=== PATIENT | male | born 1945 | race Caucasian/White ===

== ENCOUNTER 2016-08-28 10:38 | Observation (INO) | payer MEDICARE, OTHER ==
[~2016-08-28] VITALS: Ht 182.9 cm; Wt 79.2 kg
[2016-08-28] VITALS (10 sets, daily range): BP systolic 95–137; BP diastolic 64–94; PULSE 65–119; RESP 16–20; O2SAT 97–100
[~2016-08-28 10:38] MED LIST: ASPI-973 PO; ATRV10T PO; CARV6.252 PO; CYAN10008 PO; DOCU-41 PO; GLUC1500 PO; LISI-571 PO; POTA-62 PO; SPIR25TA PO; WARF2.5T82 PO; [UNRECOGNIZED DRUG - CODE] PO
--- NOTE | 2016-08-28 10:49 | ED.REPORT ---
HPI-Chest Pain 40 and Over Date of Service Aug 28, 2016 ED Provider: Spencer Osborne DO 71 year old male anticoagulated on Coumadin with a history of [place], atrial flutter , CHF, CABG, cardiac stent placement, cardiac catheterization, and mitral valve replacement presents to the ER via EMS accompanied by his after his internal defibrillator fired just prior to arrival while at an appointment to have labs drawn. He reports palpitations preceding the event, and that he was paced at 196bpm, then over 200bpm before his device went off. Lately he has been ill with nausea, vomiting, and diarrhea onset three days ago. Since being placed on Digoxin six days ago he has lost 7 pounds, reports being dehydrated, and dizziness with ambulating for long periods of time. He is followed by Dr. Torrez, Cardiology [facility], and Dr. Angel, Cardiology . Upon further questioning he reports that he typically has 3 alcoholic drinks daily, but ceased alcohol consumption five days ago. He denies any withdrawal symptoms. Nursing Notes Stated Complaint: RAPID HEART RATE Nursing Notes Reviewed: Yes Allergies: Coded Allergies: No Known Allergies (Unverified , 02/24/15) Scheduled Aspirin (Aspirin) 81 Mg Tablet 162 MG PO DAILY Atorvastatin (Lipitor) 10 Mg Tab 10 MG PO HS Carvedilol (Carvedilol) 6.25 Mg Tablet 6.25 MG PO am Carvedilol (Carvedilol) 6.25 Mg Tablet 3.125 MG PO q pm Dofetilide (Tikosyn) 500 Mcg Capsule 500 MCG PO BID Glucosamine HCl (Glucosamine HCl) 1,500 Mg Tablet 3,000 MG PO DAILY Lisinopril (Lisinopril) 5 Mg Tablet 2.5 MG PO BID Potassium Chloride ER (Potassium Chloride ER) 20 Meq Tablet.er 20 MEQ PO DAILY TAKE WITH FOOD Spironolactone (Aldactone) 25 Mg Tablet 25 MG PO DAILY Warfarin Sodium (Warfarin Sodium) 2.5 Mg Tablet 5 MG PO DAILY Scheduled PRN Docusate Sodium (Colace) 100 Mg Capsule 100 MG PO DAILY PRN PRN For Constipation Miscellaneous Medications Cyanocobalamin (Vitamin B-12) (Vitamin B-12) 1,000 Mcg Tablet 1,000 MCG PO General Time Seen by MD: 10:49 Chief Complaint Other (Defibrillator Fired) Hx Obtained From: Patient, Spouse Arrived By: Ambulance Sudden in Onset?: Yes Onset Occurred: Just prior to arrival Associated with: Reports: Dizziness, Nausea, Palpitations, Vomiting Pertinent Negative: Pt denies other symptoms Context Related History: Reports: Congestive heart failure, Myocardial infarction Recent Healthcare: Recent doctor visit Similar Sx Previous: Yes Past Medical History Past Medical History Notes: Dr. Torrez, Cardiology [facility], and Dr. Angel, Cardiology . 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 Physical Exam Initial Vital Signs Vital Signs (First) Date Time Temp Pulse Resp B/P Pulse Ox O2 Delivery O2 Flow Rate FiO2 08/28/16 10:52 35.4 119 16 137/94 99 08/28/16 11:40 Room Air Initial VS: Reviewed Head / Eyes: Atraumatic, Normocephalic Neck: Supple, Non-tender, Full range of motion Extremities: Vascular intact, Neuro intact, No swelling, No tenderness Skin: Warm, Dry, No cyanosis Neurologic: Alert, Oriented, Nonfocal Psychiatric: Mood/affect normal, Behavior normal, Normal thought content General/Constitutional: Awake, Alert, No acute distress, Well developed Appearance / Presentation: Positive: Frail Respiratory / Chest: Breath sounds NL, Breath sounds = bilat, No respiratory distress, No rales, No rhonchi, No wheezing, No stridor, No chest tenderness Cardiovascular: No murmurs, No rubs Heart Rate / Rhythm: Positive: Irreg irregular rhythm, Tachycardia Abdomen: Soft, Non-tender, No guarding, No rebound, No distention Interpretation & Diagnostics Lab Results Interpretation Result Diagram: 08/28/16 1105 08/28/16 1105 Test 08/28/16 11:05 White Blood Count 3.8th/mm3 (3.8-10.1) Red Blood Count 4.38mil/mm3 (4.40-5.80) Hemoglobin 12.9g/dL (13.8-17.2) Hematocrit 38.9% (41.0-50.0) Mean Corpuscular Volume 88.8fL (81-100) Mean Corpuscular Hemoglobin 29.5pg (27.0-35.0) Mean Corpuscular Hemoglobin Concent 33.2% (32.0-37.0) Red Cell Distribution Width 15.2% (12.3-15.4) Platelet Count 175bil/L (150-400) Neutrophils (%) (Auto) 63.3% (40-74) Lymphocytes (%) (Auto) 14.6% (14-46) Monocytes (%) (Auto) 19.8% (4-12) Eosinophils (%) (Auto) 1.8% (0-5) Basophils (%) (Auto) 0.5% (0-3) Prothrombin Time 17.4sec (8.1-12.5) Prothromb Time International Ratio 1.61ratio Sodium Level 130mEq/L (134-144) Potassium Level 4.3mEq/L (3.5-5.2) Chloride Level 94mEq/L (97-108) Carbon Dioxide Level 19mmol/L (18-29) Blood Urea Nitrogen 20mg/dL (8-27) Creatinine 0.71mg/dL (0.76-1.27) Estimat Glomerular Filtration Rate 116mL/min (>59) Glucose Level 111mg/dL (60-99) Calcium Level 8.9mg/dL (8.5-10.1) Magnesium Level 2.0mg/dL (1.6-2.6) Total Bilirubin 0.5mg/dL (0.0-1.2) Aspartate Amino Transf (AST/SGOT) 30U/L (0-50) Alanine Aminotransferase (ALT/SGPT) 19U/L (0-44) Alkaline Phosphatase 67U/L (25-160) Troponin T < 0.010ug/L (0.0-0.011) Total Protein 7.6g/dL (6.4-8.4) Albumin 4.0g/dL (3.4-5.0) Digoxin Level < 0.3nG/mL (0.9-2.0) ECG Interpretation ECG Interpretation: Tachycardia LBBB No definitive P waves, concern for flutter rhythm History of LBBB 10/2015 Time: 11:31 Interpreted by: ED physician X-Ray Chest Interpretation Chest Xray Interpretation: IMPRESSION: 1. Mild enlargement of the heart may be exaggerated by shallow inspiration and portable technique. However, cardiomegaly cannot be excluded. 2. No overt heart failure is evident. 3. Possible left basilar atelectasis. Dictated by: Douglas Jean Baptiste M.D. on 08/28/2016 at 10:46 Approved by: Douglas Jean aBptiste M.D. on 08/28/2016 at 10:49 View: Portable, 1 view Interpretation / Wet Read by: Interpret - Radiologist Re-Eval/Medical Decision Med Decision/Clinical Course Overall it sounds like this patient is dehydrated, likely a self-limiting episode of vomiting and diarrhea associated with increasing diuretics this likely precipitated rapid atrial flutter which subsequently was shocked with his AICD today. After discussion with his loan collector at [facility] and cardiology at [facility] and this helps patient will be admitted for gentle hydration and reassessment of fluid status as well as hopeful rhythm change out of a flutter. Source of Hx: Old records Time of Eval: 11:34 Re-Evaluation/Progress Note: Patient is asymptomatic. HR is now paced in the 70's. Time of Eval: 12:54 Re-Evaluation/Progress Note: Discussed lab and imaging results and need for admission. Consultation #1: Call Returned at: 11:07 Note: Discussed with prosthetic lab technician at Dr. Torrez's office. Interrogation of pacemaker revealed atrial flutter at the time of defibrillator firing. Consultation #2: Consulted With: Cardiology () Call Returned at: 12:34 Note: Discussed patient case with patient's Electric Refrigerator Preparer, Dr. nAgel, at Medicine. Recommends admission for atrial flutter. Contact Dr. Torrez, Cardiology. Consultation #3: Referral / Consult Name: Allyn Verduzco MD Consulted With: Cardiology Call Returned at: 12:41 Note: Recommends admission and hydration. Can formally consult if needed. Consultation #4: Referral / Consult Name: Rajesh Sotelo MD Consulted With: Hospitalist Call Returned at: 13:37 Director Of Scout Work: Agrees with eval, Agrees with plan, Accepts admit Counseled Regarding: Diagnosis, Lab results, Need for admission Discharge & Departure Primary Impression: Atrial flutter Additional Impressions: AICD discharge Dehydration Disposition: ADMITTED TO HOSPITAL Discharge Condition All VS Reviewed: Yes Condition: Stable Referrals: Thony Adams MD (PCP) Yaw Torrez MD Attestation Portions of this note were transcribed by Clemente Steinberg. I, Dr. Osborne, personally performed the history, physical exam and medical decision-making; I reviewed and confirmed the accuracy of the information in the transcribed note. Signed by: Yudith Smith, 08/28/2016 and 13:38 copies to: Yaw Torrez MD; Thony Adams MD, Timothy S DO Aug 28, 2016 10:49 CLEMENTE STEINBERG Aug 28, 2016 10:58
[2016-08-28] MEDS ORDERED: 0.9% Sodium Chloride 500 ML IV ONE (11:00)
[2016-08-28 11:31] LABS: BASOPHILS % (AUTO) 0.5 % (0-3); EOSINOPHILS % (AUTO) 1.8 % (0-5); MONOCYTES % (AUTO) 19.8 % (4-12); Mean Corpuscular Hemoglobin 29.5 pg (27.0-35.0); Mean Corpuscular Volume 88.8 fL (81-100); NEUTROPHILS % (AUTO) 63.3 % (40-74); Platelet Count 175 bil/L (150-400)
[2016-08-28 11:39] LABS: INR 1.61 ratio
--- NOTE | 2016-08-28 11:51 | DRSVH ---
PROCEDURE: X-RAY CHEST ONE VIEW, PORTABLE ([id number]) INDICATIONS: AICD Fired, CHF TECHNIQUE: One view of the chest was acquired. COMPARISON: [facility], CR, XR CHEST 1VW (PORTABLE), 02/24/2015, 12:36. [facility], CR, XR CHEST 2VW, 02/17/2015, 8:12. [facility], CR, CHEST 2VW, 08/28/2014, 10:00. FINDINGS: Surgical changes and devices: Cardiac pacer device is again evident overlying the left chest, which i s grossly unchanged. Post operative changes related to median sternotomy and prior heart valve surge ry are again noted. Lungs and pleura: There are low lung volumes. Partial obscuration of the left diaphragm is present. However, there is no focal consolidation, effusion, or pneumothorax. No overt heart failure is evid ent. Mediastinum: Mediastinal contours appear normal. Heart size is mildly enlarged some which may be ex aggerated by portable technique and shallow inspiration. There is aortic atherosclerosis. Bones and chest wall: No suspicious bony lesions. Overlying soft tissues appear unremarkable. IMPRESSION: 1. Mild enlargement of the heart may be exaggerated by shallow inspiration and portable technique. However, cardiomegaly cannot be excluded. 2. No overt heart failure is evident. 3. Possible left basilar atelectasis. Dictated by: Douglas Jean Baptiste M.D. on 08/28/2016 at 10:46 Approved by: Douglas Jean Baptiste M.D. on 08/28/2016 at 10:49
[2016-08-28 12:08] LABS: TROPONIN T < 0.010 ug/L (0.0-0.011)
[2016-08-28] MEDS: 0.9% Sodium Chloride 1,000 ML IV SCH (13:27)
[2016-08-28] MEDS ORDERED: Ondansetron 2 mg/mL 2 mL Inj IVPUSH PRN (13:40)
[2016-08-28] MEDS ORDERED: Polyethylene Glycol (PEG) 17 Gm Powder PO PRN (13:40)
[2016-08-28] MEDS ORDERED: ALBU8.5H2 INH (14:10)
[2016-08-28] MEDS ORDERED: SILD20TA14 PO (14:10)
[2016-08-28] MEDS ORDERED: SILD50TA PO (14:10)
[2016-08-28] MEDS ORDERED: FURO40TA4 PO (14:10)
[2016-08-28] MEDS ORDERED: WARF2.5T82 PO (14:10)
[2016-08-28] MEDS ORDERED: DIGO125T73 PO (14:10)
--- NOTE | 2016-08-28 17:20 | PCM.HPMED ---
Subjective Date of Service Aug 28, 2016 Primary Provider: Admitting Physician: Rajesh Sotelo MD Primary Care Physician: Thony Adams MD Attending Physician: Rajesh Sotelo MD Admit Status: From the Emergency Department, 23-Hour Observation, Admit to [facility] Team, [facility] Telemetry Chief Complaint: Diarrhea with dehydration and AICD defibrillation History of Present Illness: Patient was ill from Sunday through Sunday with an illness . He developed progressive nausea and emesis with anorexia. Then he had fairly severe diarrhea Sunday and Sunday. He became somewhat dehydrated and weak. Today, while having his blood drawn, his AICD shocked him. This was his 1st shock. Interrogation revealed a rapid AF with unsuccessful overdrive acing. No ventricular tachycardia. He was started on digoxin last Sunday from the heart failure clinic at [facility]. His diuretics were increased Sun as well and he took them through his illness. No fevers, chills, rectal bleeding, URI symptoms , chest pain, racing heart, leg edema, or orthopnea. No new NAVA. Review of Systems: All reviewed and negative except as noted on history and physical. Allergies Coded Allergies: No Known Allergies (Unverified , 08/28/16) Home Medications Coded Allergies: No Known Allergies (Unverified , 02/24/15) Scheduled Aspirin (Aspirin) 81 Mg Tablet 162 MG PO DAILY Atorvastatin (Lipitor) 10 Mg Tab 10 MG PO HS Carvedilol (Carvedilol) 6.25 Mg Tablet 6.25 MG PO am Carvedilol (Carvedilol) 6.25 Mg Tablet 3.125 MG PO q pm Dofetilide (Tikosyn) 500 Mcg Capsule 500 MCG PO BID Glucosamine HCl (Glucosamine HCl) 1,500 Mg Tablet 3,000 MG PO DAILY Lisinopril (Lisinopril) 5 Mg Tablet 2.5 MG PO BID Potassium Chloride ER (Potassium Chloride ER) 20 Meq Tablet.er 20 MEQ PO DAILY TAKE WITH FOOD Spironolactone (Aldactone) 25 Mg Tablet 25 MG PO DAILY Warfarin Sodium (Warfarin Sodium) 2.5 Mg Tablet 5 MG PO DAILY Scheduled PRN Docusate Sodium (Colace) 100 Mg Capsule 100 MG PO DAILY PRN PRN For Constipation Miscellaneous Medications Cyanocobalamin (Vitamin B-12) (Vitamin B-12) 1,000 Mcg Tablet 1,000 MCG PO PMH 1. CAD with bypass twice, as well as PCI. 2. Myocardial infacrction 3. Chronic systolic heart failure (ischemic cardiomyopathy) 4. Mitral valve replacement (Bovine) 5. Atrial fibrillation with 3 past ablations. Surgical History CABG CABG and MVR Family History Negative for CAD Social History Occupation: retired Hx Alcohol Use: Yes (09/21/16 last drink. Stopped for heart transplant.) Hx Substance Use: No Smoking Status: Former Smoker Living Arrangement: with Family Exam Vital Signs Vital Sign - Last Date Time Temp Pulse Resp B/P Pulse Ox O2 Delivery O2 Flow Rate FiO2 08/28/16 15:57 65 08/28/16 15:45 36.5 20 104/72 100 Room Air Exam Alert and oriented x 3, no distres, fluent speech, normal affect Normal skull Normal ears and nose Anicteric sclera and conjugate gaze. Normal mouth, no facial droop Normal neck, thyroid, and no adenopathy Lungs clear, normal effort Heart irregular, and no murmur Abdomen soft, NT No leg edema Many bruises Normal joints Normal muscle strength. Lab and Diagnostics Result Diagram: 08/28/16 1105 08/28/16 1105 X-Rays, CTs and MRIs CXR without infiltrate or edema. 12-lead ECG LBBB, probable paced Assessment & Plan 1. Volume depletion from diarrhea (resolved), POA. Gentle rehydration, hold diuretics. 2. Chronic systolic heart failure, POA. Usual medications except digoxin. 3. Diarrhea, resolved. Follow clinically. 4. PAF, POA. Normal rate. Follow clinically and continue coumadin. 5. Low protime, POA. Coumadin 7.5 tonight. Full code Observation status, 1 night stay anticipated. Pain Evaluation: Adequate Pain Control Resuscitation Status: CPR: Attempt Resuscitation Time spent 40 min Rajesh Sotelo MD Aug 28, 2016 17:19
[2016-08-28 19:07] LABS: APPEARANCE,URINE CLEAR (CLEAR,HAZY); COLOR,URINE YELLOW (YELLOW); OCCULT BLOOD,URINE TRACE (NEGATIVE); UROBILINOGEN,URINE NORMAL (NORMAL)
--- NOTE | 2016-08-28 19:28 | NUR ---
Arrived, Telemetry Changes Arrived - He arrived to [facility] 2023 about 1520. He was settled into the room and normal saline IV was started at 75 mls per hour per Dr. Sotelo's orders. Telemetry was placed on him with the initial reading of V-paced 96 at 1530. Telemetry Changes - Around 1722 it appeared that his pacemaker stopped pacing. About 1730 he got up to go to the bathroom and started having A-flutter in the 170s. He was in the bathroom and had an accident while having a bowel movement. He was assisted by staff to sit down, get cleaned up, and taken back to bed. At 1745 the Podiatric Medicine Doctor called to say it appeared he was in V-tach in the 180s. Went into the room and he was found in bed and said he felt "chest pressure." The charge nurse notified Dr. Sotelo via phone who said to let him rest to see if the pressure disappears, take his vitals, and call him back within 5 minutes. The pressure disappeared, his vitals were stable, and Dr. Sotelo was notified. Dr. Sotelo came to check on the patient and upon further inspection of his cardiac rhythm came to the conclusion that it was likely atrial activity rather then ventricular. He sat and talked with the patient and his for quite some time. Per Dr. Sotelo's orders he will remain mostly bedrest tonight except for short trips to the bedside commode, continue to hydrate with the normal saline, continue telemetry monitoring, and continue home medication except for Digoxin and diuretics. He and his are in agreement with this plan. assembler 1st shift notified. Care continues.
[2016-08-28] MEDS ORDERED: Albuterol 2.5 mg/3 mL Inhalation Solution NEB PRN (20:00)
--- NOTE | 2016-08-29 01:23 | NUR ---
HS coreg pt refusing his HS coreg 6.25MG pt stating he dosen't take it at night and Dr. Sotelo told him he wasn't changing any medications, pt on bedrest but sits at side of bed to void and per tele rhythm changing into a ventricular tachycardia with a wide complex rates up to 140-180s, pt also one time with 5 beats of v-tach during this pt c/o a slight discomfort, otherwise tele 2:1 Aflutter rate 60-110s, pt deciding he wanted to take 3.125mg now of coreg, called MD and received order to give 3.125MG PO coreg now OT and cont dose in morning of 6.25MG, explained to pt and he understood. pt on strict bedrest and will cont POC
[2016-08-29] MEDS: 0.9% Sodium Chloride 1,000 ML IV SCH (02:54)
[2016-08-29 04:00] VITALS: BP 99/65; PULSE 103; RESP 17; O2SAT 97
[2016-08-29 05:05] LABS: BASOPHILS % (AUTO) 0.3 % (0-3); EOSINOPHILS % (AUTO) 3.3 % (0-5); MONOCYTES % (AUTO) 19.1 % (4-12); Mean Corpuscular Volume 87.9 fL (81-100); NEUTROPHILS % (AUTO) 60.1 % (40-74); Platelet Count 141 bil/L (150-400)
[2016-08-29 07:56] VITALS: BP 105/67; PULSE 73; RESP 18; O2SAT 98
[2016-08-29 10:54] VITALS: PULSE 96
--- NOTE | 2016-08-29 11:00 | NUR ---
Activity Order to have pt ambulate and monitor HR. Pt up in room and ambulated around nurse unit with HR in the 80s and back down to 70s at rest. Pt denied c/p, SOB or Dizziness. MD made aware. Ongoing care.
[2016-08-29 12:39] VITALS: BP 95/62; PULSE 80; RESP 16; O2SAT 98
--- NOTE | 2016-08-29 13:11 | NUR ---
Case Management: Medicare KELLOGG information and "How Medicare Covers Self-Administered Drugs Given in Hospital Outpatient Settings" handout provided with explanation. Patient signed KELLOGG form 08/29/16 at 1210. Jeannie Mcnair RN
--- NOTE | 2016-08-29 13:19 | NUR ---
Social Work Note: Initial Assessment Data& Assessment: EMR Reviewed. SW met with pt and pt at bedside to discuss discharge planning, SW role explained. Rell Colon is a 71 year old male admitted on 08/28/2016 under observation for A-Flutter and AICD Discharge. Pt has Medicare and [facility] [employer] Supplement for insurance coverage. Pt sees Thony Dhirajkamleshsoledad for primary care. Pt lives in [place] with his in a two story home where he is independent with all of his ADL's. Pt does not use any DME at baseline. Pt does not have HH or SNF hx. Pt does not have LTC insurance or VA benefits. Pt has DPOA/Advance Directive paperwork completed at home, SW requested a copy for his chart when possible. SW provided contact number on pt white board. Pt and pt deny any other needs at this time. SW to continue to follow if any needs arise. Plan: Anticipated discharge home via POV when medically ready. Pt and pt deny any other needs at this time. SW to continue to follow if any needs arise. GISELLE Simon Addendum: 08/29/16 at 1323 by AMELIE NUÑEZ Amended: Links added.
--- NOTE | 2016-08-29 14:11 | PCM.DIMED ---
Discharge Instructions Date of Service Aug 29, 2016 Dates of Hospitalization Aug 28, 2016 at 14:24 Discharge Diagnosis Discharge Diagnosis 1. Volume depletion, resolved. 2. Diarrhea, resolved. 3. Atrial fibrillation with tachycardia, improved. 4. Chronic systolic heart failure. 5. Prosthetic mitral valve replacement, remote. Diet Low fat, Low Sodium, Heart Healthy Call your provider Shortness of breath, Chest pain Patient Instructions Follow-up Provider: Yaw Torrez MD Follow-up with PCP in: 1 week Rajesh Sotelo MD Aug 29, 2016 14:11
[2016-08-29] MEDS ORDERED: CARV6.252 PO (14:12)
--- NOTE | 2016-08-29 14:22 | PCM.DC.MED ---
Discharge Summary Date of Service Aug 29, 2016 Dates of Hospitalization Date of Hospital Admission Aug 28, 2016 at 14:24 Date of Discharge: Aug 29, 2016 Providers: Admitting Physician: Rajesh Reyes MD Primary Care Physician: Thony Adams MD Attending Physician: Rajesh Reyes MD Diagnosis at Time of Discharge Diagnosis at Time of Discharge 1. Volume depletion, resolved. 2. Diarrhea, resolved. 3. Atrial fibrillation with tachycardia, improved. 4. Chronic systolic heart failure. 5. Prosthetic mitral valve replacement, remote. Consultations None Procedures XRay, CTs & MRIs CXR without infiltrate or edema. ECG 12 Lead LBBB, probable paced Invasive Procedures None Brief History Patient was ill from Sunday through Sunday with an illness . He developed progressive nausea and emesis with anorexia. Then he had fairly severe diarrhea Sunday and Sunday. He became somewhat dehydrated and weak. Today, while having his blood drawn, his AICD shocked him. This was his 1st shock. Interrogation revealed a rapid AF with unsuccessful overdrive acing. No ventricular tachycardia. He was started on digoxin last Sunday from the heart failure clinic at [facility]. His diuretics were increased Sun as well and he took them through his illness. No fevers, chills, rectal bleeding, URI symptoms , chest pain, racing heart, leg edema, or orthopnea. No new NAVA. Hospital Course 1. Volume depletion from diarrhea (resolved), POA. Gentle rehydration, hold diuretics. 2. Chronic systolic heart failure, POA. Usual medications except digoxin. 3. Diarrhea, resolved. Follow clinically. 4. PAF, POA. Normal rate. Follow clinically and continue coumadin. 5. Low protime, POA. Coumadin 7.5 tonight. Full code Observation status, 1 night stay anticipated. Hospital course: he was admitted for volume depletion and episodes of tachycardia. He had limited diarrhea prio to admit. He was given IVF and improved. Digoxi was stopped at request of [facility] cards. His coreg kept at usual dosing. On day of dc he was able to walk without sever increase in HR or symptoms. We spent a fair amount of time discussing AV node ablation for rate control verses ongoing changes of medications. Exam Vital Signs (Last) Date Time Temp Pulse Resp B/P Pulse Ox O2 Delivery O2 Flow Rate FiO2 08/29/16 12:39 36.4 80 16 95/62 98 Room Air Exam Patient seen and examined on day of discharge. Test 08/28/16 11:05 08/28/16 17:40 08/29/16 04:10 Prothrombin Time 17.4sec (8.1-12.5) Prothromb Time International Ratio 1.61ratio Magnesium Level 2.0mg/dL (1.6-2.6) Troponin T < 0.010ug/L (0.0-0.011) Digoxin Level < 0.3nG/mL (0.9-2.0) Urine Color Yellow (YELLOW) Urine Appearance Clear (CLEAR,HAZY) Urine pH 5.0 (5.0-8.0) Urine Specific [place] 1.015 (1.003-1.035) Urine Protein Negativemg/dL (NEG,TRACE) Urine Glucose (UA) Negativemg/dL (NEGATIVE) Urine Ketones Tracemg/dL (NEGATIVE) Urine Occult Blood Trace (NEGATIVE) Urine Nitrite Negative (NEGATIVE) Urine Bilirubin Negative (NEGATIVE) Urine Urobilinogen Normalmg/dL (NORMAL) Urine Leukocyte Esterase Negative (NEGATIVE) Urine RBC 0-2/hpf (0-2) Urine WBC 0-5/hpf (0-5) Urine Epithelial Cells Occasional/hpf (NONE-MOD) Urine Crystals None seen (NONE SEEN) Urine Bacteria None/hpf (NONE-FEW) Urine Hyaline Casts None/lpf (NONE) Urine Granular Casts None seen (NONE SEEN) Urine Waxy Casts None seen (NONE SEEN) Urine Red Blood Cell Casts None seen (NONE SEEN) Urine White Blood Cell Casts None seen (NONE SEEN) Urine Mucus None seen (None Seen) Urine Trichomonas None seen (NONE SEEN) Urine Yeast None (NONE SEEN) Urinalysis Comment None Urine Culture Reflexed Not indicated White Blood Count 3.0th/mm3 (3.8-10.1) Red Blood Count 3.55mil/mm3 (4.40-5.80) Hemoglobin 10.3g/dL (13.8-17.2) Hematocrit 31.2% (41.0-50.0) Mean Corpuscular Volume 87.9fL (81-100) Mean Corpuscular Hemoglobin 29.0pg (27.0-35.0) Mean Corpuscular Hemoglobin Concent 33.0% (32.0-37.0) Red Cell Distribution Width 14.9% (12.3-15.4) Platelet Count 141bil/L (150-400) Neutrophils (%) (Auto) 60.1% (40-74) Lymphocytes (%) (Auto) 17.2% (14-46) Monocytes (%) (Auto) 19.1% (4-12) Eosinophils (%) (Auto) 3.3% (0-5) Basophils (%) (Auto) 0.3% (0-3) Sodium Level 137mEq/L (134-144) Potassium Level 3.8mEq/L (3.5-5.2) Chloride Level 103mEq/L (97-108) Carbon Dioxide Level 21mmol/L (18-29) Blood Urea Nitrogen 11mg/dL (8-27) Creatinine 0.69mg/dL (0.76-1.27) Estimat Glomerular Filtration Rate 120mL/min (>59) Glucose Level 92mg/dL (60-99) Calcium Level 8.2mg/dL (8.5-10.1) Total Bilirubin 0.4mg/dL (0.0-1.2) Aspartate Amino Transf (AST/SGOT) 22U/L (0-50) Alanine Aminotransferase (ALT/SGPT) 14U/L (0-44) Alkaline Phosphatase 53U/L (25-160) Total Protein 5.4g/dL (6.4-8.4) Albumin 3.1g/dL (3.4-5.0) Discharge Medications Discharge Medications Aspirin (Aspirin) 81 Mg Tablet 162 MG PO DAILY (Reported) Atorvastatin (Lipitor) 10 Mg Tab 10 MG PO HS (Reported) Carvedilol (Carvedilol) 6.25 Mg Tablet 6.25 MG PO BID Prescribed by: RAJESH REYES MD Dofetilide (Tikosyn) 500 Mcg Capsule 500 MCG PO BID Prescribed by: MEDARDO BLAIR Furosemide (Furosemide) 40 Mg Tablet 40 MG PO DAILY (Reported) Glucosamine HCl (Glucosamine HCl) 1,500 Mg Tablet 3,000 MG PO DAILY (Reported) Lisinopril (Lisinopril) 5 Mg Tablet 2.5 MG PO BID (Reported) Potassium Chloride ER (Potassium Chloride ER) 20 Meq Tablet.er 20 MEQ PO DAILY ( Reported) TAKE WITH FOOD Spironolactone (Aldactone) 25 Mg Tablet 25 MG PO DAILY Prescribed by: MEDARDO BLAIR Warfarin Sodium (Warfarin Sodium) 2.5 Mg Tablet 5 MG PO sun,sun, sunday ( Reported) Warfarin Sodium (Warfarin Sodium) 2.5 Mg Tablet 7.5 MG PO ,,, (Reported ) As needed Albuterol HFA (Proair HFA) 8.5 Gm Hfa.aer.ad 2 PUFFS INH q4-6 hours PRN PRN For Shortness of Breath (Reported) Sildenafil Citrate (Sildenafil) 20 Mg Tablet 20 MG PO DAILY PRN PRN sexual activity (Reported) Followup Plan Disposition: Home with Discharge Diet: Low fat, Low Sodium, Heart Healthy Follow-up Provider: Yaw Torrez MD Follow-up with PCP in: 1 week Time spent 40 minutes Rajesh Reyes MD Aug 29, 2016 14:22
--- NOTE | 2016-08-29 14:56 | NUR ---
Social Work Note: Discharge Data& Assessment: Per MD pt is medically ready for discharge. Rell Colon is a 71 year old male under observation for Aflutter. Per MD pt is medically improved and ready for discharge. Pt and pt deny any other needs. Pt transporting pt home. All updated and agreeable to plan. No other discharge needs identified. Plan: Per pt is medically improved and ready for discharge. Pt and pt deny any other needs. All updated and agreeable to plan. No other discharge needs identified. GISELLE Simon
--- NOTE | 2016-08-29 14:57 | NUR ---
Discharge of patient Reviewed discharge instructions with patient and patient's . Patient verbalized understanding. Pt discharged via wheelchair with prescription and instructions. IV and Telemetry previously discontinued. Patient left hospital with to home self care.
[2016-09-11] MEDS ORDERED: SILD50TA PO (14:48)
== END 2016-08-29 14:45 | disposition home or self-care (01) ==
LOC: SED 10:38 → EDBD 10:38 → EDUNIT# 10:38 → PCC 14:24
PROVIDERS: ADMIT Hospitalist; ATTEND Hospitalist
DX: E86.0 Dehydration (principal); R19.7 Diarrhea, unspecified; I48.91 Unspecified atrial fibrillation; I50.22 Chronic systolic (congestive) heart failure; R00.0 Tachycardia, unspecified; I48.92 Unspecified atrial flutter; I25.10 Atherosclerotic heart disease of native coronary artery without angina pectoris; I25.2 Old myocardial infarction; Z95.1 Presence of aortocoronary bypass graft; Z95.5 Presence of coronary angioplasty implant and graft; Z95.2 Presence of prosthetic heart valve; Z79.01 Long term (current) use of anticoagulants; Z95.810 Presence of automatic (implantable) cardiac defibrillator; Z79.82 Long term (current) use of aspirin; Z87.891 Personal history of nicotine dependence
CPT/HCPCS: 36415; 71010; 80053; 80162; 81000; 82274; 83735; 84484; 85025; 85610; 87633; 93005; 96360; 96361; 99285; G0378; J7030; J7040

== ENCOUNTER 2016-09-12 00:16 | Day surgery (SDC) | payer MEDICARE, OTHER ==
[2016-09-12] VITALS (15 sets, daily range): BP systolic 81–90; BP diastolic 51–62; PULSE 61–82; RESP 12–20; O2SAT 97–99
[~2016-09-12] VITALS: Ht 185.4 cm; Wt 67.3 kg
[~2016-09-12 00:16] MED LIST changes: +ALBU8.5H2 INH; -CYAN10008 PO; -DOCU-41 PO; +FURO40TA4 PO; +SILD50TA PO
[2016-09-12] MEDS ORDERED: 0.9% Sodium Chloride 1,000 ML IV SCH (08:55)
[2016-09-12 11:58] LABS: BASOPHILS % (AUTO) 0.7 % (0-3); MONOCYTES % (AUTO) 11.2 % (4-12); Mean Corpuscular Volume 91.1 fL (81-100); NEUTROPHILS % (AUTO) 71.4 % (40-74); Platelet Count 152 bil/L (150-400)
[2016-09-12 12:11] LABS: INR 1.55 ratio
[2016-09-12] MEDS ORDERED: CARV3.122 PO (12:21)
[2016-09-12] MEDS ORDERED: WARF7.5T PO (12:23)
[2016-09-12] MEDS ORDERED: WARF6TAB PO (12:23)
--- NOTE | 2016-09-12 13:05 | NUR ---
Admitted today for an planned AV node ablation. Pt and family understand plan of care for the procedure and recovery. Admits in a paced rhythm rate is 110, but abruptly changes to a rate 61 still paced. BP running in the low 80's - pt states he has had a recent > of Coreg - and is tolerating the lower BP without dizziness.
[2016-09-12] MEDS ORDERED: Heparin 5,000 Units/500 mL NS Premix IV ONE ×2 (14:33)
[2016-09-12] MEDS ORDERED: Vancomycin Inj 1,250 MG in 0.9% Sodium Chloride 250 ML IV SCH (14:48)
[2016-09-12] MEDS ORDERED: Heparin 1,000 Unit/mL 10 mL Inj ONE (14:48)
[2016-09-12] MEDS ORDERED: 0.9% Sodium Chloride 1,000 ML ONE (14:49)
[2016-09-12] MEDS ORDERED: fentaNYL-PF 50 mCg/mL 2 mL Inj ONE (14:55)
[2016-09-12] MEDS ORDERED: HYDROcodone-APAP 5-325 mg Tablet PO PRN (16:15)
[2016-09-12] MEDS ORDERED: Ondansetron 2 mg/mL 2 mL Inj IVPUSH PRN (16:15)
--- NOTE | 2016-09-12 17:42 | NUR ---
Received Received from cath lab manager about 1630. VSS. Right groin stable. 100% AV paced. Taking po well. Denies pain. Groin precautions reviewed and verbalizes understanding. Continue to monitor per orders.
--- NOTE | 2016-09-12 18:33 | NUR ---
Recovery/Transfer No change in assessment 2 hours post ablation. Report called to Bethany Slaughter RN. Transported to 2023 via bed with all belongings in no distress. at 1830.
--- NOTE | 2016-09-12 19:04 | NUR ---
Admit Pt arrived around 1830 from [facility]. A&O X3. Answers questions appropriately, able to make needs known. No c/o pain or discomfort. Telemetry placed. Pt has bilateral forearm IVs. R groin site shows no hematoma or oozing. Pt will remain bedrest until 2029. Whiteboard updated.
[2016-09-12] MEDS ORDERED: Albuterol 2.5 mg/3 mL Inhalation Solution NEB PRN (19:20)
--- NOTE | 2016-09-12 19:42 | PCM.CONPHA ---
Subjective Date of Service: Sep 12, 2016 Requesting Provider: Yaw Torrez MD Reason for Pharmacy Consult: Anticoagulation Management Objective Vital Signs Date Time Temp Pulse Resp B/P Pulse Ox O2 Delivery O2 Flow Rate FiO2 09/12/16 19:29 81 09/12/16 19:02 36.4 82 20 83/52 99 Room Air 09/12/16 18:25 81 15 83/51 Room Air 09/12/16 18:25 81 15 83/51 09/12/16 18:00 81 15 86/56 Room Air 09/12/16 18:00 81 15 86/56 09/12/16 17:45 81 16 85/58 Room Air 09/12/16 17:45 81 16 85/58 09/12/16 17:30 81 15 87/55 98 Room Air 09/12/16 17:30 81 15 87/55 09/12/16 17:15 80 16 90/60 97 Room Air 09/12/16 17:15 80 16 90/60 09/12/16 17:00 81 13 86/55 09/12/16 17:00 81 13 86/55 97 Room Air 09/12/16 16:40 79 13 86/55 97 Room Air 09/12/16 16:40 79 13 86/55 09/12/16 16:35 81 15 85/60 97 Room Air 09/12/16 16:35 81 15 85/60 09/12/16 16:30 81 13 90/55 09/12/16 16:30 81 13 90/55 97 Room Air 09/12/16 12:24 36.4 61 12 85/62 98 Room Air 09/12/16 12:24 61 12 85/62 Weight (Kilograms): 82.700 Height (Feet): 6 Height (Inches): 1.00 Test 09/12/16 11:52 White Blood Count 4.0th/mm3 (3.8-10.1) Red Blood Count 3.70mil/mm3 (4.40-5.80) Hemoglobin 11.1g/dL (13.8-17.2) Hematocrit 33.7% (41.0-50.0) Mean Corpuscular Volume 91.1fL (81-100) Mean Corpuscular Hemoglobin 30.0pg (27.0-35.0) Mean Corpuscular Hemoglobin Concent 32.9% (32.0-37.0) Red Cell Distribution Width 14.5% (12.3-15.4) Platelet Count 152bil/L (150-400) Neutrophils (%) (Auto) 71.4% (40-74) Lymphocytes (%) (Auto) 13.7% (14-46) Monocytes (%) (Auto) 11.2% (4-12) Eosinophils (%) (Auto) 3.0% (0-5) Basophils (%) (Auto) 0.7% (0-3) Prothrombin Time 16.7sec (8.1-12.5) Prothromb Time International Ratio 1.55ratio Sodium Level 138mEq/L (134-144) Potassium Level 4.5mEq/L (3.5-5.2) Chloride Level 101mEq/L (97-108) Carbon Dioxide Level 24mmol/L (18-29) Blood Urea Nitrogen 18mg/dL (8-27) Creatinine 0.69mg/dL (0.76-1.27) Estimat Glomerular Filtration Rate 120mL/min (>59) Glucose Level 92mg/dL (60-99) Calcium Level 9.3mg/dL (8.5-10.1) Assessment/Plan Assessment/Plan Warfarin per Rx Indication: INR today: 1.55 Dr Torrez ordered 10mg for today; Rx will start managing tomorrw Daily INR ordered Julio C Stone PharmD Sep 12, 2016 19:42
--- NOTE | 2016-09-12 21:11 | PROCED ---
[address] [address] PROCEDURE NOTE PATIENT: CHANDAN COHEN : 1945 MR#: [id number] ADMIT: 09/12/2016 JOB ID: [id number] DATE OF SERVICE: 09/12/2016 PREOPERATIVE DIAGNOSIS(ES): 1. Severe multifactorial cardiomyopathy. 2. Recurrent atrial flutter with inappropriate implantable cardioverter-defibrillator discharge. 3. Biventricular implantable cardioverter-defibrillator in place. 4. Chronic anticoagulation. POSTOPERATIVE DIAGNOSIS(ES): 1. Severe multifactorial cardiomyopathy. 2. Recurrent atrial flutter with inappropriate implantable cardioverter-defibrillator discharge. 3. Biventricular implantable cardioverter-defibrillator in place. 4. Chronic anticoagulation. 5. Incomplete heart block. PROCEDURE PERFORMED: 1. Atrioventricular junction ablation. 2. Preprocedural implantable cardioverter-defibrillator programming and reprogramming. 3. Fluoroscopy. SURGEON: Yaw Torrez MD, electrophysiology attending. ELECTRIC TOOL REPAIRER: Erwin Foster PA-C. ANESTHESIA: Bolus dosing of Versed and fentanyl were utilized to provide an appropriate level of sedation. INDICATIONS: The patient is a pleasant 71-year-old man with severe multifactorial cardiomyopathy, biventricular ICD in place and recurrent atrial flutter on one occasion leading to inappropriate ICD discharge. We have been discussing the prospect of AV junction ablation for another atrial dysrhythmia which is an atypical atrial flutter that is inappropriately being tracked by a device. After discussion of risks and benefits of AV junction ablation, he opted to proceed. PROCEDURAL DESCRIPTION: Following informed signed consent, the patient was taken to the electrophysiology laboratory where he was prepped in the usual sterile fashion. The right inguinal region was infiltrated with 1% lidocaine and using modified Seldinger technique, an 8-[place] sheath was inserted into the right femoral vein. The ICD was programmed to VVI 40 beats per minute and tachy detections were turned off at the onset of the case. A J curved irrigated ablation catheter was brought to the field and advanced in position of the AV junction. Ablation lesions were placed here and ultimately leading to complete heart block with an escape junctional rhythm at 41 beats per minute. A 20 minute waiting period was undertaken during which heart block was confirmed. His ICD was re-interrogated showing excellent lead parameters and reprogrammed to DDDR 80 beats per minute for one month to be decreased by 10 beats per minute q. month until acceptable pace rate is reached. Tachyarrhythmia detections were turned back to on. The catheter and sheaths were removed. Manual pressure was held for hemostasis. The patient was transferred to the [facility] for monitoring and bedrest. COMPLICATIONS: None. ESTIMATED BLOOD LOSS: Negligible. DEVICE PARAMETERS: 1. Baseline rhythm is sinus with intermittent atrial flutter. QRS duration is 145 msec, QT 480 msec. 2. Intracardiac intervals, HV interval is 77 msec. 3. AV junction ablation, as described above. IMPRESSION: Successful atrioventricular junction ablation. PLAN: 1. Bed rest x4 hours. 2. Continue current medication regimen. 3. Programmed to DDDR 80 beats per minute for one month and reduced by 10 beats per month. 4. Follow up with Dr. Erwin Foster in clinic in four weeks. ATTENDING STATEMENT: Yaw Torrez MD, electrophysiology attending, was present for and has supervised/performed all aspects of this procedure.
[2016-09-13 00:37] VITALS: PULSE 80
[2016-09-13 03:18] VITALS: BP 85/55; PULSE 79; RESP 18; O2SAT 97
[2016-09-13 04:03] LABS: INR 1.63 ratio
--- NOTE | 2016-09-13 06:56 | NUR ---
Post Ablation BP low (see VS intervention for further details). Pt stated his BP runs low high 80s over high 50s. Measured BP at 2100 81/51. Dr. Torrez notified. Received verbal order to hold Coreg and Lisinopril but to give Tikosyn. Pt up walking to BR with SBA. Pt denies dizziness. No overt complications noted. Right groin access without apparent complications.
[2016-09-13] MEDS ORDERED: Potassium Chloride 20 mEq SR Tablet PO SCH (08:00)
[2016-09-13 08:30] VITALS: BP 104/72; PULSE 80; RESP 14; O2SAT 100
--- NOTE | 2016-09-13 10:12 | PCM.DIMED ---
Discharge Instructions Date of Service Sep 13, 2016 Dates of Hospitalization Discharge Diagnosis Discharge Diagnosis Atypical Atrial Flutter Ischemic Cardiomyopathy Paroxysmal Atrial Fibrillation Complete Heart Block; s/p AV Node Ablation Diet Heart Healthy Activity Other (To prevent infection, do not sit in a bath tub, hot tub, pool or torres for 5 days. To prevent bleeding, do not lift, push or pull more than 10 lbs for 5 days.) Call your provider Fever or Chills, Bleeding, Excessive diarrhea Patient Instructions Provider: Yaw Torrez MD Follow-up in: 6 weeks Erwin Foster PA-C Sep 13, 2016 10:12
[2016-09-13] MEDS ORDERED: WARF7.5T PO (10:16)
[2016-09-13 10:41] VITALS: PULSE 81
--- NOTE | 2016-09-13 10:59 | DIS ---
[address] [address] DISCHARGE SUMMARY PATIENT: CHANDAN COHEN : 1945 MR#: [id number] ADMIT: 09/12/2016 JOB ID: [id number] DIS: 09/13/2016 REASON FOR ADMISSION: The patient was admitted for an AV node ablation to control heart rate. CHIEF COMPLAINT: Episodic rapid pulse and dyspnea. BRIEF HISTORY: The patient is a pleasant 71-year-old man with ischemic heart disease and prior mitral valve bioprosthesis replacement and he has an LVEF of 35%. He has been troubled by an atypical atrial flutter which leads to rapid ventricular rhythms even fast enough that his ICD had shocked him on one occasion. The medications have been unsuccessful in preventing the arrhythmia or rapid rates and he was counseled toward the possibility of AV node ablation for absolute rate control. He has a well functioning biventricular ICD system in place for rate support. COURSE IN HOSPITAL: The patient was admitted through the [facility] and taken to the labeling specialist, where he underwent the AV node ablation procedure without any incidents. Afterward his pacemaker was set at 80 beats per minute and he was taken back to the [facility] for recovery from sedation and then transferred upstairs to the [facility] for overnight observation. Overnight telemetry showed biventricular pacing and no ventricular arrhythmias. His right groin access site is closed and dry and there is no hematoma. He denies site tenderness and he has also not had palpitations and he says his heart rhythm feels regular and normal. DISPOSITION: The patient was discharged home in good condition with a follow up appointment at the [facility] office in six weeks [address] Dr. Torrez, at which time, the pacer rate will likely be decreased to 70 beats per minute. He was asked to continue his heart healthy diet and to take medications as prescribed. To prevent bleeding, he was asked not to lift, push or pull more than 10 pounds for five days and to prevent infection. He was asked not to sit in the hot tub, bathtub or pool for five days. DISCHARGE MEDICATIONS: This is a long list. MEDICATIONS: 1. Albuterol inhaler two puffs q. 4-6 hours p.r.n. dyspnea. 2. Aspirin 162 mg daily. 3. Atorvastatin 10 mg q.h.s. 4. Carvedilol 6.25 mg b.i.d. 5. Carvedilol 3.125 mg q.h.s. 6. Dofetilide 500 mcg b.i.d. 7. Furosemide 60 mg daily. 8. Glucosamine 3000 mg daily. 9. Lisinopril 5 mg b.i.d. 10. Potassium chloride 20 mEq daily. 11. Viagra 50 mg p.o. p.r.n. 12. Spironolactone 25 mg daily. 13. Warfarin 7.5 mg daily or as directed by his anticoagulation clinic. FINAL DIAGNOSES: 1. Ischemic cardiomyopathy. 2. Atypical atrial flutter. 3. Paroxysmal atrial fibrillation. 4. Complete heart block status post atrioventricular node ablation.
--- NOTE | 2016-09-13 11:15 | NUR ---
Discharge Pt discharged this am at 1110 ambulatory. Friend transporting home. No complaints or concerns, all discharge paperwork and instructions reviewed. Wound care instructions reviewed. pt verbalized understanding. all belongings with patient.
== END 2016-09-13 11:10 | disposition home or self-care (01) ==
LOC: SOUO 00:16 → PCC 18:39 → SOUO 09-13 11:10
PROVIDERS: ATTEND Internal Medicine Cardiovascular Disease
DX: I48.4 Atypical atrial flutter (principal); T82.191A Other mechanical complication of cardiac pulse generator (battery), initial encounter; I25.5 Ischemic cardiomyopathy; I25.10 Atherosclerotic heart disease of native coronary artery without angina pectoris; I48.0 Paroxysmal atrial fibrillation; I44.2 Atrioventricular block, complete; Z95.5 Presence of coronary angioplasty implant and graft; Z95.1 Presence of aortocoronary bypass graft; Z87.891 Personal history of nicotine dependence; E78.5 Hyperlipidemia, unspecified; Z79.899 Other long term (current) drug therapy; I25.2 Old myocardial infarction; Z79.82 Long term (current) use of aspirin; Z79.01 Long term (current) use of anticoagulants
CPT/HCPCS: 80048; 85025; 85610; 93005; 93650; 94799; 99152; 99153; C1732; C1733; J1644; J2250; J3010; J7030